=== PATIENT | female | born 1950 | race Caucasian/White ===

== ENCOUNTER → 2017-11-01 12:01 | Outpatient (CLI) | payer MEDICARE, BC, SELFPAY ==
--- NOTE | 2017-11-01 12:45 | BRBX_PTH ---
PATIENT: KARIN PRESTON LOC: [facility] U#:[id number] AGE/SX: 74/F ROOM: RE11/01/[address]: Dr. Fred Erickson MD : 1950 BED: DIS: SPEC #: [id number] RECD: 11/01/17 13:51 STATUS: BILLY ROSSY #: [id number] SAHRA: 11/01/17 12:[address]: Fred Erickson DEPT: SURGICAL PATHOLOGY RECD BY: Carmelo White ENTERED: 11/01/17 13:51 SP TYPE: BREAST BX OT DR: Kae Dunlap PA-C Tissues: Right breast, NOS Procedures: Surgery Specimen Level IV HEADER OPERATION: Right stereotactic breast biopsy PRE-OP DIAGNOSIS: Right breast microcalcifications anterior depth TISSUE SUBMITTED: Right breast core tissue ISCHEMIC TIME: 1 minute FIXATION TIME: 7.5 hours MICROSCOPIC DIAGNOSIS Right breast, microcalcifications anterior depth, stereotactic core biopsy: Fragments of fatty benign breast tissue with focal fat necrosis, chronic inflammation and dystrophic calcifications. Negative for atypia or malignancy. LISANDRA:krzysztof 11/02/17 MICROSCOPIC DESCRIPTION Slides are reviewed. GROSS DESCRIPTION Received is one container labeled with the patient's name and not further designated. The specimen consists of multiple elongated fragments of de la cruz-yellow fibroadipose tissue that in aggregate measure 7.5 x 3 x 0.3 cm. The entire specimen is submitted in three cassettes. / LISANDRA:krzysztof 11/01/17 TC:5 CPT: 56340
--- NOTE | 2017-11-01 13:03 | PCM.OPRPT ---
Problem List (1) Microcalcification of right breast on mammogram Status: Acute Report of Operation Date of Procedure: 11/01/17 Pre-Operative Diagnosis: R92.0 mammographic microcalcifications right breast Post-Operative Diagnosis: Same Surgery/Procedure Performed:: 40445 right stereotactic breast biopsy Type of Anesthesia:: Local Description of Procedure: Patient was brought into the mammographic unit. Placed in the supine position on the fissure table. The right breast was brought down through the opening. A cc view was obtained. Microcalcifications were identified. ?15? views were obtained. I prepped the breast with Betadine. I injected 1% lidocaine plain. A skin christi was made. The needle was placed in the prefire position. 2 more stereo views were obtained showing the microcalcifications to be adequately targeted. I fired the needle and took 360? circumferential biopsies. I x-rayed my specimen. Microcalcifications were identified. I backed the needle off [address] Placed a small Gelfoam titanium clip into the biopsy cavity. I removed the needle and x-rayed my breast. The clip was in the biopsy cavity. Patient was taken out sterile dressings were applied standard mammogram was obtained and she tolerated the procedure well. - Admit VTE Documentation VTE Present on Admission: No VTE Mechan Device Prophylaxis: None VTE Pharm Prophylaxis ordered?: No Reason prophylaxis not ordered:: Treatment Not Indicated
--- NOTE | 2017-11-01 13:07 | OP.PCM_ITS ---
Problem List (1) Microcalcification of right breast on mammogram Status: Acute Report of Operation Date of Procedure: 11/01/17 Pre-Operative Diagnosis: R92.0 mammographic microcalcifications right breast Post-Operative Diagnosis: Same Surgery/Procedure Performed:: 38947 right stereotactic breast biopsy Type of Anesthesia:: Local Description of Procedure: Patient was brought into the mammographic unit. Placed in the supine position on the fissure table. The right breast was brought down through the opening. A cc view was obtained. Microcalcifications were identified. ?15? views were obtained. I prepped the breast with Betadine. I injected 1% lidocaine plain. A skin christi was made. The needle was placed in the prefire position. 2 more stereo views were obtained showing the microcalcifications to be adequately targeted. I fired the needle and took 360? circumferential biopsies. I x- rayed my specimen. Microcalcifications were identified. I backed the needle off 7 mm. Placed a small Gelfoam titanium clip into the biopsy cavity. I removed the needle and x-rayed my breast. The clip was in the biopsy cavity. Patient was taken out sterile dressings were applied standard mammogram was obtained and she tolerated the procedure well. - Admit VTE Documentation VTE Present on Admission: No VTE Mechan Device Prophylaxis: None VTE Pharm Prophylaxis ordered?: No Reason prophylaxis not ordered:: Treatment Not Indicated
== END ==
PROVIDERS: Family Provider Family Medicine; PCP Family Medicine; Visit Provider Surgery
DX: N64.1 Fat necrosis of breast (principal); R92.0 Mammographic microcalcification found on diagnostic imaging of breast; E78.5 Hyperlipidemia, unspecified; E03.9 Hypothyroidism, unspecified; I10 Essential (primary) hypertension; E11.9 Type 2 diabetes mellitus without complications; Z79.84 Long term (current) use of oral hypoglycemic drugs; Z79.899 Other long term (current) drug therapy; Z87.891 Personal history of nicotine dependence
CPT/HCPCS: 19081; 88305; J7050; A4648

== ENCOUNTER 2018-06-13 07:20 | Day surgery (SDC) | payer MEDICARE, BC, SELFPAY ==
[2018-06-13 07:42] VITALS: BP 122/81; PULSE 79; RESP 16; TEMP 37; O2SAT 98; BMI 38.9
[2018-06-13 07:50] LABS: Bedside Glucose 127 mg/dL (70-110)
[2018-06-13 08:50] VITALS: BP 102/52; BP 122/81; PULSE 79; RESP 16; TEMP 36.4; O2SAT 97
--- NOTE | 2018-06-13 08:50 | OP.ENDO_ITS ---
Patient Name: Socorro Dixon Procedure Date: 06/13/2018 8:27 AM Date of : 1950 Age: 67 Procedure: Colonoscopy Indications: Screening in patient at increased risk: Colorectal cancer in brother 60 or older Providers: Fred Erickson MD Medicines: See the Anesthesia note for documentation of the administered medications Patient Profile: Last Colonoscopy: 5 years ago. Complications: No immediate complications. Procedure: Pre-Anesthesia Assessment: - Prior to the procedure, a History and Physical was performed, and patient medications and allergies were reviewed. The patient's tolerance of previous anesthesia was also reviewed. The risks and benefits of the procedure and the sedation options and risks were discussed with the patient. All questions were answered, and informed consent was obtained. Prior Anticoagulants: The patient has taken no previous anticoagulant or antiplatelet agents. ASA Grade Assessment: III - A patient with severe systemic disease. After reviewing the risks and benefits, the patient was deemed in satisfactory condition to undergo the procedure. After I obtained informed consent, the scope was passed under direct vision. Throughout the procedure, the patient's blood pressure, pulse, and oxygen saturations were monitored continuously. The adult colonoscope was introduced through the anus and advanced to the cecum, identified by appendiceal orifice and ileocecal valve. The colonoscopy was performed without difficulty. The patient tolerated the procedure well. The quality of the bowel preparation was good. Scope In: 8:33:42 AM Scope Withdrawal Time 0 hours 6 minutes 43 seconds Scope Out: 8:45:17 AM Total Procedure Duration Time 0 hours 11 minutes 35 seconds Findings: The perianal and digital rectal examinations were normal. A 3 mm polyp was found in the rectum. The polyp was sessile. The polyp was removed with a jumbo cold forceps. Resection and retrieval were complete. A few small-mouthed diverticula were found in the sigmoid colon. No biopsies or other specimens were collected for this exam. The exam was otherwise without abnormality. Impression: - One 3 mm polyp in the rectum, removed with a jumbo cold forceps. Resected and retrieved. - Diverticulosis in the sigmoid colon. No specimens collected. - The examination was otherwise normal. Recommendation: - Discharge patient to home. - Resume previous diet. - Continue present medications. - Await pathology results. - Repeat colonoscopy in 3 years for surveillance. - Return to my office in 1 week. Procedure Code(s): --- Professional --- 03001, Colonoscopy, flexible; with biopsy, single or multiple Diagnosis Code(s): --- Professional --- Z80.0, Family history of malignant neoplasm of digestive organs K62.1, Rectal polyp K57.30, Diverticulosis of large intestine without perforation or abscess without bleeding CPT copyright 2017 [employer]. All rights reserved. The codes documented in this report are preliminary and upon supervisor mainspring fabrication review may be revised to meet current compliance requirements. MD Fred Stern MD 06/13/2018 8:49:59 AM This report has been signed electronically. Number of Addenda: 0 Note Initiated On: 06/13/2018 8:27 AM
[2018-06-13 08:55] VITALS: BP 122/81; BP 90/39; PULSE 64; RESP 16; O2SAT 98
[2018-06-13 09:00] VITALS: BP 122/81; BP 95/38; PULSE 66; RESP 16; O2SAT 97
[2018-06-13 09:05] VITALS: BP 102/50; BP 122/81; PULSE 59; RESP 16; TEMP 36.3; O2SAT 100
[2018-06-13 09:55] VITALS: BP 122/81
--- NOTE | 2018-06-14 | COLBX_PTH ---
PATIENT: KARIN PRESTON LOC: [facility] U#:[id number] AGE/SX: 67/F ROOM: RE06/13/[address]: Dr. Fred Erickson MD : 1950 BED: DIS: 06/13/2018 SPEC #: [id number] RECD: 06/14/18 13:28 STATUS: BILLY REFrida #: [id number] SAHRA: 06/14/18 00:[address]: Fred Erickson DEPT: SURGICAL PATHOLOGY RECD BY: Carmelo White ENTERED: 06/14/18 13:28 SP TYPE: COLON BX OTHR DR: Kae Dunlap PA-C Tissues: Rectum, NOS Procedures: Surgery Specimen Level IV HEADER OPERATION: Colonoscopy (MAC) PRE-OP DIAGNOSIS: Family history of colon cancer TISSUE SUBMITTED: Rectal polyp biopsy MICROSCOPIC DIAGNOSIS Rectal polyp, biopsy: A fragment of colonic mucosa with focal hyperplastic changes. SJ:krzysztof 06/15/18 MICROSCOPIC DESCRIPTION Slides are reviewed. GROSS DESCRIPTION Received in fixative is one container labeled with the patient's name and designated rectal polyp biopsy. The specimen consists of one irregular fragment of light de la cruz soft tissue that measures 0.3 x 0.3 x 0.1 cm. The specimen is totally submitted in one cassette. / SJ:krzysztof 06/14/18 TC:5 CPT: 24332
== END 2018-06-13 09:57 | disposition home or self-care (01) ==
LOC: EN 07:20 → AC 07:21
PROVIDERS: Family Provider Family Medicine; PCP Family Medicine; Referring Provider Surgery; Visit Provider Surgery
PROC: 0DJD8ZZ Inspection of Lower Intestinal Tract, Via Natural or Artificial Opening Endoscopic (ICD-10-PCS; CPT 45378; principal; 2018-06-13 08:25)
DX: Z12.11 Encounter for screening for malignant neoplasm of colon (principal); K57.30 Diverticulosis of large intestine without perforation or abscess without bleeding; K62.1 Rectal polyp; Z87.19 Personal history of other diseases of the digestive system; Z80.0 Family history of malignant neoplasm of digestive organs; I10 Essential (primary) hypertension; E11.9 Type 2 diabetes mellitus without complications; E03.9 Hypothyroidism, unspecified; E78.5 Hyperlipidemia, unspecified; Z79.84 Long term (current) use of oral hypoglycemic drugs; Z79.899 Other long term (current) drug therapy; Z87.891 Personal history of nicotine dependence
CPT/HCPCS: 45380; 82962; 88305; J7120

== ENCOUNTER 2024-02-11 10:24 | Emergency (ER) | payer MEDICARE, BC, SELFPAY ==
[2024-02-11 10:25] VITALS: BP 209/87; BP 210/79; PULSE 81; PULSE 85; RESP 14; RESP 16; TEMP 36.6; O2SAT 100; O2SAT 98; BMI 39.6
--- NOTE | 2024-02-11 11:07 | CT_ITS ---
STUDY: CT ABDOMEN AND PELVIS WITHOUT CONTRAST REASON FOR EXAM: Female, 73 years old. Right flank and abdominal pain RADIATION DOSAGE (If Supplied By Facility): CTDIvol = ( 21.94 ) mGy, DLP = ( 1195.06 ) mGycm TECHNIQUE: Transaxial images were obtained from the dome of the diaphragm to the symphysis pubis without oral contrast, and without intravenous contrast. Sagittal and coronal images were reconstructed. Individualized dose optimization techniques were used for this CT. COMPARISON: None. FINDINGS: Mild degree of increased linear markings at the lung bases suggestive of atelectasis. Coronary artery calcification. Normal liver. Normal gallbladder and extrahepatic biliary system. Normal spleen. Normal pancreas. Normal bilateral adrenal glands. There is a 5 mm calculus in the proximal portion of the right ureter causing mild degree right hydronephrosis. 2 mm nonobstructive calculus in the lower pole of the right kidney. Normal left kidney. Normal visualized stomach. Normal small intestine. Normal colon. The appendix is visualized and appears normal. There is scattered atherosclerotic calcification of the abdominal aorta, without a demonstrated aneurysm. Normal inferior vena cava. Normal retroperitoneum. Normal urinary bladder. There is absence of the uterus consistent with a prior hysterectomy. Small ventral hernia in the lower anterior abdomen containing fat. There are degenerative changes of the visualized lumbar spine. Grade 1 anterolisthesis of L4 on L5. Findings suggestive of hemangioma of the L4 body. CT/Abdomen/Pelvis without Cont IMPRESSION: 5 mm calculus in the proximal portion of the right ureter causing mild degree of right hydronephrosis. Nonobstructive 2 mm cavernous in the lower pole calyx of the right kidney. Electronically Signed: Baltazar Braswell MD at 12:32 EDT ,
--- NOTE | 2024-02-11 11:09 | EX.ED.DYSGE1 ---
HPI <JOHN Stevens - Last Filed: 02/11/24 13:16> History of Present Illness Chief Complaint: Abd Pain Narrative Narrative: 73-year-old female with past medical history of hypertension, diabetes states at 6 AM she was awoken with right sided abdominal pain. it feels like sharp colicky pain in the mid to right lower quadrant and occasionally radiates to the right low back. Pain comes in waves and caused nausea and vomiting. It has subsided to 2 out of 10. She noted twinges of right-sided abdominal pain earlier this week but did not think much of it. She has no bladder or bowel changes. She has a history of x 1 and hysterectomy. She states on a prior CT scan she was told she had a nonobstructive kidney stone. [facility] <JOHN Stevens - Last Filed: 02/11/24 13:16> [facility] Medical History (Updated 02/11/24 @ 12:36 by JOHN Stevens) Hyperlipidemia Hypothyroid Diabetes HTN (hypertension) Home Medications ?Medication ?Instructions ?Recorded ?Last Taken ?Type levothyroxine 50 mcg tablet 50 mcg PO DAILY 02/07/14 06/13/18 06:00 History lisinopril 5 mg tablet 10 mg PO DAILY 10/11/17 06/13/18 06:00 History metformin 500 mg tablet 1,000 mg PO BIDCM 10/11/17 Unknown History metoprolol tartrate 25 mg tablet 25 mg PO QDAY 10/11/17 06/13/18 06:00 History dulaglutide 0.75 mg/0.5 mL 0.75 mg SQ TU 06/10/18 Unknown History subcutaneous pen injector (Trulicity) rosuvastatin 10 mg tablet 10 mg PO DAILY 06/10/18 Unknown History hydrocodone-acetaminophen 5-325mg 1 tab PO Q6H PRN PRN Pain 3 days 02/11/24 Unknown Rx 5mg-325mg #12 TABLETS ondansetron 4 mg disintegrating 4 mg PO Q6H PRN nausea and 02/11/24 Unknown Rx tablet vomiting #12 tabs tamsulosin 0.4 mg capsule (Flomax) 0.4 mg PO DAILY #14 caps 02/11/24 Unknown Rx Allergy/AdvReac Type Severity Reaction Status Date / Time No Known Allergies Allergy Verified 02/11/24 10:25 Family History Sister Breast cancer Diabetes Thyroid disorder Brother Colon cancer Heart disease Thyroid disorder Mother Diabetes Hypertension Surgical History H/O breast biopsy Hx of colonoscopy History of cataract extraction History of right wrist replacement History of tubal ligation History of hysterectomy H/O: Social History (Updated 05/24/18 @ 09:[address] Fred Erickson MD) Smoking Status: Former smoker alcohol intake: never ROS <JOHN Stevens - Last Filed: 02/11/24 13:16> ROS ED ROS Narrative Constitutional: Negative for fever, chills, malaise. CVS: Negative for chest pain, syncope. Respiratory: Negative for shortness of breath, cough. GI: Positive for abdominal pain, nausea, vomiting. Negative for diarrhea, constipation, melena, hematochezia. : Negative for dysuria, hematuria or frequency. EXAM <JOHN Stevens - Last Filed: 02/11/24 13:16> Physical Exam Narrative Exam Narrative: CONST: Patient sitting in no acute distress. EYES: Normal inspection. NECK: Normal inspection. RESP: No respiratory distress, CTAB. CVS: Regular rate and rhythm, no murmur, no gallop. ABD: Soft and nontender, no guarding or rebound, nondistended, no hepatosplenomegaly. Back: Normal inspection, no CVA tenderness. SKIN: Color normal, no rash, warm, dry, intact. EXTREMITIES: Normal appearance, no pedal edema. NEURO: Alert and answering questions appropriately. PSYCH: Normal affect. Const Vital Signs: 02/11/24 10:25 02/11/24 10:25 02/11/24 12:22 Temperature 98 F Temperature Source Temporal Pulse Rate 81 85 69 Respiratory Rate 16 14 16 Blood Pressure 210/79 H 209/87 H 200/86 H Blood Pressure Mean 122 127 124 Pulse Ox 98 100 98 Oxygen Delivery Method Room Air Nasal Cannula 02/11/24 12:42 Temperature Temperature Source Pulse Rate Respiratory Rate Blood Pressure 175/90 H Blood Pressure Mean 118 Pulse Ox Oxygen Delivery Method <Dr. Fred Harrell DO - Last Filed: 02/11/24 13:22> Physical Exam Const Vital Signs: 02/11/24 10:25 02/11/24 10:25 02/11/24 12:22 Temperature 98 F Temperature Source Temporal Pulse Rate 81 85 69 Respiratory Rate 16 14 16 Blood Pressure 210/79 H 209/87 H 200/86 H Blood Pressure Mean 122 127 124 Pulse Ox 98 100 98 Oxygen Delivery Method Room Air Nasal Cannula 02/11/24 12:42 Temperature Temperature Source Pulse Rate Respiratory Rate Blood Pressure 175/90 H Blood Pressure Mean 118 Pulse Ox Oxygen Delivery Method [facility] <JOHN Stevens - Last Filed: 02/11/24 13:16> [facility] Narrative Medical decision making narrative: History gathered from: Patient, family member Differential: Kidney stone, pyelonephritis, UTI, diverticulitis or other intra-abdominal process Patient has acute right-sided abdominal pain with nausea and vomiting. She appears well and nontoxic. She is hypertensive at 200/86 with otherwise normal vital signs. She has a soft, nonsurgical abdomen. Labs show normal white count of 5.8, normal electrolytes and renal function, glucose of 212 consistent with her history of diabetes with no DKA. CT shows 5 mm right proximal ureteral obstructive stone causing mild hydronephrosis. UA has RBCs but no infection. Patient declined morphine and feels better after Toradol. I discussed the case with Dr. Altman who states patient can follow-up in the office next week. She is comfortable going home. I prescribed [place], Zofran, Flomax and a urine strainer with return precautions. She was discharged in stable condition. Lab Data Attestation: I reviewed the patient's lab results. Labs: Laboratory Results - last 24 hr 02/11/24 02/11/24 11:15 12:15 WBC 5.8 RBC 4.42 Hgb 12.3 Hct 38.7 MCV 87.6 MCH 27.8 MCHC 31.8 L RDW Std Deviation 44.2 H RDW Coeff of Davey 13.9 Plt Count 312 MPV 9.4 Immature Gran % (Auto) 1.000 H Neut % (Auto) 68.8 Lymph % (Auto) 20.8 [place] % (Auto) 6.2 Eos % (Auto) 1.7 Baso % (Auto) 1.5 H Absolute Neuts (auto) 4.0 Absolute Lymphs (auto) 1.21 Nucleated RBC % 0 Sodium 140 Potassium 4.2 Chloride 106 Carbon Dioxide 23.0 Anion Gap 11 BUN 17 Creatinine 0.88 Estim Creat Clear Calc 65.72 Est GFR (MDRD) Af Amer 81 Est GFR (MDRD) Non-Af 67 BUN/Creatinine Ratio 19.3 Glucose 212 H Calcium 9.3 Total Bilirubin 0.40 AST 20 ALT 31 Alkaline Phosphatase 118 H Total Protein 6.9 Albumin 3.4 Globulin 3.5 Albumin/Globulin Ratio 1.0 Urine Color Yellow Urine Clarity Sl. Cloudy Urine pH 6.0 Ur Specific [place] 1.015 Urine Protein 30 H Urine Glucose (UA) Normal Urine Ketones Negative Urine Occult Blood 250 H Urine Nitrite Negative Urine Bilirubin Negative Urine Urobilinogen Normal Ur Leukocyte Esterase 25 H Urine RBC 25-50 SEEN Urine WBC 0-5 SEEN Ur Squamous Epith Cells 0-5 SEEN Urine Bacteria 0 SEEN Urine Mucus 0 SEEN Radiography Diagnostic Testing: Clinical Impression(s) from Imaging Studies Abdomen/Pelvis CT 02/11/24 11:07 IMPRESSION: 5 mm calculus in the proximal portion of the right ureter causing mild degree of right hydronephrosis. Nonobstructive 2 mm cavernous in the lower pole calyx of the right kidney. Electronically Signed: Baltazar Braswell MD at 12:32 EDT , <Dr. Fred Harrell, DO - Last Filed: 02/11/24 13:22> [facility] Narrative Medical decision making narrative: History gathered from: Patient, family member Differential: Kidney stone, pyelonephritis, UTI, diverticulitis or other intra-abdominal process Patient has acute right-sided abdominal pain with nausea and vomiting. She appears well and nontoxic. She is hypertensive at 200/86 with otherwise normal vital signs. She has a soft, nonsurgical abdomen. Labs show normal white count of 5.8, normal electrolytes and renal function, glucose of 212 consistent with her history of diabetes with no DKA. CT shows 5 mm right proximal ureteral obstructive stone causing mild hydronephrosis. UA has RBCs but no infection. Patient declined morphine and feels better after Toradol. I discussed the case with Dr. Altman who states patient can follow-up in the office next week. She is comfortable going home. I prescribed [place], Zofran, Flomax and a urine strainer with return precautions. She was discharged in stable condition. I have personally performed a face to face assessment of the patient and have reviewed the GILMA Note. I performed a substantive portion of the visit including all aspects of the following. My cruz findings include: History is 73-year-old female with some intermittent right flank and nausea yesterday. It worsened today and is noted to be more in the mid abdomen in the flank. Familial history of kidney stones but no personal history of kidney stones. She notes her urine is darker than normal. Exam is patient resting comfortably in the bed. Nonsurgical abdomen. Medical Decison Making CT demonstrates a proximal ureteral stone of about 5 to 6 mm. Urinalysis demonstrates microscopic hematuria but no obvious infection. Creatinine is normal. White count is normal. Will discuss with urology. Patient will be discharged home with pain medication and nausea medication. To follow-up in the office or return if worsening or uncontrolled pain. Patient and her son noted understanding of the plan History & Record Review Discussion w/independent historian: Patient Lab Data Attestation: I reviewed the patient's lab results. Labs: Laboratory Results - last 24 hr 02/11/24 02/11/24 11:15 12:15 WBC 5.8 RBC 4.42 Hgb 12.3 Hct 38.7 MCV 87.6 MCH 27.8 MCHC 31.8 L RDW Std Deviation 44.2 H RDW Coeff of Davey 13.9 Plt Count 312 MPV 9.4 Immature Gran % (Auto) 1.000 H Neut % (Auto) 68.8 Lymph % (Auto) 20.8 [place] % (Auto) 6.2 Eos % (Auto) 1.7 Baso % (Auto) 1.5 H Absolute Neuts (auto) 4.0 Absolute Lymphs (auto) 1.21 Nucleated RBC % 0 Sodium 140 Potassium 4.2 Chloride 106 Carbon Dioxide 23.0 Anion Gap 11 BUN 17 Creatinine 0.88 Estim Creat Clear Calc 65.72 Est GFR (MDRD) Af Amer 81 Est GFR (MDRD) Non-Af 67 BUN/Creatinine Ratio 19.3 Glucose 212 H Calcium 9.3 Total Bilirubin 0.40 AST 20 ALT 31 Alkaline Phosphatase 118 H Total Protein 6.9 Albumin 3.4 Globulin 3.5 Albumin/Globulin Ratio 1.0 Urine Color Yellow Urine Clarity Sl. Cloudy Urine pH 6.0 Ur Specific [place] 1.015 Urine Protein 30 H Urine Glucose (UA) Normal Urine Ketones Negative Urine Occult Blood 250 H Urine Nitrite Negative Urine Bilirubin Negative Urine Urobilinogen Normal Ur Leukocyte Esterase 25 H Urine RBC 25-50 SEEN Urine WBC 0-5 SEEN Ur Squamous Epith Cells 0-5 SEEN Urine Bacteria 0 SEEN Urine Mucus 0 SEEN Radiography Diagnostic Testing: Clinical Impression(s) from Imaging Studies Abdomen/Pelvis CT 02/11/24 11:07 IMPRESSION: 5 mm calculus in the proximal portion of the right ureter causing mild degree of right hydronephrosis. Nonobstructive 2 mm cavernous in the lower pole calyx of the right kidney. Electronically Signed: Baltazar Braswell MD at 12:32 EDT , Management Discussion w/another healthcare provider: Cook Pressure (Dr. Bonilla (Urology)) Discharge Plan Triage Chief Complaint: Abd Pain ED Midlevel Provider: Denise Jasso ED Provider: Fred Harrell Dx/Rx/DC Orders Clinical Impression: Kidney stone on right side Instructions: ED Kidney Stone with Pain Prescriptions: New hydrocodone-acetaminophen 5-325 mg tablet 1 tab PO Q6H PRN PRN (Reason: Pain) 3 Days Qty: 12 0RF ondansetron 4 mg tablet,disintegrating 4 mg PO Q6H PRN (Reason: nausea and vomiting) Qty: 12 0RF tamsulosin [Flomax] 0.4 mg capsule 0.4 mg PO DAILY Qty: 14 0RF No Action metoprolol tartrate 25 mg tablet 25 mg PO QDAY levothyroxine 50 MCG tablet 50 mcg PO DAILY lisinopril 5 MG tablet 10 mg PO DAILY metformin 500 MG tablet 1,000 mg PO BIDCM rosuvastatin 10 MG tablet 10 mg PO DAILY dulaglutide [Trulicity] 0.75 MG/0.5 ML pen injector 0.75 mg SQ TU Primary Care Provider: Nallely Robb Referrals: Jeremy Bonilla MD [Med Staff - Active Staff] - Kae Dunlap PA-C [Non-Staff] - Activity Restrictions/Additional Instructions: There is a 5 mm right-sided kidney stone. Please follow-up with urology. If symptoms worsen such as severe pain, vomiting and you cannot keep down your medications, fever, or inability to urinate please return to the emergency room. Print Language: Telugu Disposition Disposition: Home, Self Care
[2024-02-11] MEDS: 0.9% Normal Saline (1000mL) 1,000 ML 999 ML IV (11:22)
[2024-02-11] MEDS: Ondansetron 4 MG/2 ML Vial IV (11:22)
[2024-02-11 11:23] LABS: Absolute Lymphocyte Count 1.21 X10^3/uL (0.83-4.51); Basophil# 0.09 X10^3/uL; Basophil% 1.5 % (0-1); Eosinophils% 1.7 % (0-5); Hematocrit 38.7 % (37-47); Hemoglobin 12.3 g/dL (12.0-15.0); Lymphocyte # 1.21 X10^3/ul (0.83-4.51); Lymphocyte % 20.8 % (19-41); Mean Corp Hgb Conc 31.8 g/dL (32-36); Mean Corpuscular Hgb 27.8 pg (27.0-32.0); Mean Corpuscular Volume 87.6 fL (81-99); Mean Platelet Vol. 9.4 fl (6.2-12.0); Monocyte# 0.36 X10^3/uL; Monocyte% 6.2 % (0-10); NRBC Flagged by Analyzer 0 % (0-5); Neutrophil # 3.99 X10^3/uL (2.7-7.7); Neutrophil % 68.8 % (47-70); Platelet Count 312 K/mm3 (150-450); RBC Distribution Width CV 13.9 % (11.6-14.6); RBC Distribution Width SD 44.2 fl (35.1-43.9); Red Blood Count 4.42 M/mm3 (4.2-5.4); White Blood Count 5.8 K/mm3 (4.4-11.0)
[2024-02-11 11:38] LABS: AST(SGOT) 20 U/L (15-37); Alanine Aminotransfer ALT/SGPT 31 U/L (13-56); Albumin, Serum 3.4 g/dL (3.2-5.0); Alkaline Phosphatase 118 U/L (45-117); Anion Gap 11 (5-15); BUN 17 mg/dL (7-18); BUN/Creat Ratio 19.3 RATIO (10-20); Calcium,Total 9.3 mg/dL (8.5-10.1); Chloride 106 mmol/L (98-107); Creatinine, Serum 0.88 mg/dL (0.55-1.02); EST Glomerular Filtration Rate 67 mL/min (>60); Est Glom Filt Rate - Afr Amer 81 mL/min (>60); Estimated Creatinine Clearance 65.72 ml/min; Globulin 3.5 g/dL (2.2-4.2); Glucose 212 mg/dL (74-106); Potassium 4.2 mmol/L (3.5-5.1); Protein, Total 6.9 g/dL (6.4-8.2); Sodium Level 140 mmol/L (136-145)
[2024-02-11 12:22] VITALS: BP 200/86; PULSE 69; RESP 16; O2SAT 98
[2024-02-11] MEDS: Ketorolac 15 MG/ML Vial IV (12:23)
[2024-02-11 12:28] LABS: Bacteria 0 SEEN /hpf (None Seen); Mucous, Urine 0 SEEN /hpf (<or=2+)
[2024-02-11 12:38] LABS: Color, Urine Yellow (Yellow); Glucose, Dipstick Normal (Normal); Ketone-Dipstick Negative (Negative); Leukocyte Esterase-Dipstick 25 /ul (Negative); Nitrite-Dipstick Negative (Negative); Occult Blood-Urine 250 /ul (Negative); Protein-Dipstick 30 mg/dl (Negative); Specific Gravity, Urine 1.015 (1.002-1.030); Urine Bilirubin Dipstick Negative (Negative); Urine Clarity Sl. Cloudy (Clear); Urine Urobilinogen Normal (Normal)
[2024-02-11 12:42] VITALS: BP 175/90
[2024-02-11 13:00] LABS: Red Blood Cells-Urine 25-50 SEEN /hpf (0-5); Squamous Epithelial Cells - UA 0-5 SEEN /hpf (5-10); White Blood Cells 0-5 SEEN /hpf (0-5)
[2024-02-11 13:33] VITALS: BP 127/108; PULSE 70; RESP 16; TEMP 36.7; O2SAT 94
== END 2024-02-11 13:57 | disposition home or self-care (01) ==
PROVIDERS: Physician Assistant; Emergency Provider Emergency Medicine; Visit Provider Emergency Medicine
DX: N13.2 Hydronephrosis with renal and ureteral calculous obstruction (principal); E11.9 Type 2 diabetes mellitus without complications; I10 Essential (primary) hypertension; E78.5 Hyperlipidemia, unspecified; E03.9 Hypothyroidism, unspecified; Z79.84 Long term (current) use of oral hypoglycemic drugs; Z79.899 Other long term (current) drug therapy; Z87.891 Personal history of nicotine dependence
CPT/HCPCS: 74176; 80053; 81001; 85025; 96361; 96374; 96375; 99283; A4216; J2405

== ENCOUNTER 2024-02-11 23:05 | Observation (INO) | payer MEDICARE, BC, SELFPAY ==
[2024-02-11 23:06] VITALS: BP 204/109; PULSE 75; RESP 20; TEMP 36; O2SAT 97; BMI 39.8
[2024-02-11] MEDS: Ondansetron 4 MG/2 ML Vial IV (23:30)
[2024-02-11] MEDS: 0.9% Normal Saline (1000mL) 1,000 ML 999 ML IV (23:30)
[2024-02-11] MEDS: Morphine 4 MG/ML Syringe IV (23:30)
[2024-02-12] VITALS (17 sets, daily range): BP systolic 91–202; BP diastolic 62–90; PULSE 64–116; RESP 14–20; TEMP 36.1–37.1; O2SAT 91–98; BMI 39.6; BMI 39.7
[2024-02-12] MEDS: proCHLORPERazine 10 MG/2 ML Vial IV (00:08)
[2024-02-12] MEDS: DiphenhydrAMINE 50 MG/ML Syringe 25 MG IV (00:08)
[2024-02-12] MEDS: Ketorolac 15 MG/ML Vial IV (00:08)
--- NOTE | 2024-02-12 00:28 | EX.ED.DYSGE1 ---
HPI History of Present Illness Chief Complaint: Flank Pain Informant: patient and family Narrative Narrative: Patient is a 73-year-old female with past medical history of [id number] type 2 diabetes hypertension and hypothyroidism. She was seen this morning/early afternoon secondary to right-sided flank/back pain without trauma and found to have a 5 mm mid ureteral stone. There is no signs of UTI or acute kidney injury and her pain was improved with Toradol so she was discharged home on [place] and Flomax and told to take ibuprofen with this. Patient states she was feeling relatively well until roughly 7 PM when the pain returned and she took the medication as directed. Despite waiting multiple hours for the pain to improve with the prescribed medication there is no resolution and therefore she comes in for evaluation [facility] Medical History Hyperlipidemia Hypothyroid Diabetes HTN (hypertension) Home Medications ?Medication ?Instructions ?Recorded ?Last Taken ?Type metformin 500 mg tablet 1,000 mg PO BIDCM 10/11/17 02/10/24 History dulaglutide 0.75 mg/0.5 mL 0.75 mg SQ TU 06/10/18 02/10/24 History subcutaneous pen injector (Trulicity) rosuvastatin 10 mg tablet 10 mg PO DAILY 06/10/18 02/10/24 History glipizide 5 mg tablet 5 mg PO DAILY 02/11/24 02/10/24 History hydrocodone-acetaminophen 5-325mg 1 tab PO Q6H PRN PRN Pain 3 days 02/11/24 Unknown Rx 5mg-325mg #12 TABLETS levothyroxine 75 mcg tablet 75 mcg PO DAILY 02/11/24 02/10/24 History lisinopril 10 mg tablet 10 mg PO DAILY 02/11/24 02/10/24 History metoprolol tartrate 50 mg tablet 50 mg PO DAILY 02/11/24 02/10/24 History ondansetron 4 mg disintegrating 4 mg PO Q6H PRN nausea and 02/11/24 Unknown Rx tablet vomiting #12 tabs tamsulosin 0.4 mg capsule (Flomax) 0.4 mg PO DAILY #14 caps 02/11/24 Unknown Rx Allergy/AdvReac Type Severity Reaction Status Date / Time No Known Allergies Allergy Verified 02/11/24 23:08 Family History Sister Breast cancer Diabetes Thyroid disorder Brother Colon cancer Heart disease Thyroid disorder Mother Diabetes Hypertension Surgical History H/O breast biopsy Hx of colonoscopy History of cataract extraction History of right wrist replacement History of tubal ligation History of hysterectomy H/O: Social History Smoking Status: Former smoker alcohol intake: never ROS ROS ED Constitutional Constitutional ED: Denies chills or fever(s) ENT ENT ED: Denies sore throat Cardiovascular Cardiovascular: Denies chest pain Respiratory/Chest Respiratory/Chest: Denies cough or dyspnea Gastrointestinal Gastrointestinal: Reports abdominal pain; Denies diarrhea, nausea or vomiting Genitourinary Genitourinary ED: Reports hematuria; Denies dysuria or urinary frequency Musculoskeletal Musculoskeletal: Reports back pain; Denies myalgias Integumentary Denies rash Neurologic Neurologic: Denies headache(s) Hematologic/Lymphatic Hematologic/Lymphatic: Denies easy bleeding or easy bruising EXAM Physical Exam Const Vital Signs: 02/11/24 23:06 Temperature 96.8 F L Temperature Source Temporal Pulse Rate 75 Respiratory Rate 20 H Blood Pressure 204/109 H Blood Pressure Mean 140 Pulse Ox 97 Oxygen Delivery Method Room Air Positive well nourished, well developed and obese General Appearance ED: well developed; Negative for pallor Nutritional Appearance: obese HEENT HEENT Narrative: Normocephalic atraumatic Eyes PERRL and EOMs intact bilaterally General Eye ED: Negative for scleral icterus Neck supple Resp normal respiratory effort and clear to auscultation bilaterally Cardio regular rate and regular rhythm Rate: other Other Details: Heart is regular rate and rhythm Radial and carotid pulses are equal and symmetric GI non-distended and no masses GI Narrative: Abdomen is soft and nondistended with hypoactive bowel sounds. Patient has mild pain with palpation along the right mid lateral abdomen which correlates with the potential location of her ureteral stone. No voluntary guarding or rigidity or pulsatile mass Auscultation: hypoactive bowel sounds Palpation: soft Back/Spine Back/Spine Narrative: Positive right CVA pain noted Extremity normal to inspection Neuro oriented x3, CN's II-XII intact bilaterally and no sensory deficits noted Sensorium / Orientation: alert Motor Exam: strength 5/5 throughout Psych mental status grossly normal Skin no rashes or lesions noted General Skin Exam: Negative for jaundice or pallor MDM MDM MDM Narrative Medical decision making narrative: Patient presented to the ER hypertensive otherwise with stable vitals. She has a past medical history of this and is in pain so this is not unexpected. As the patient was just seen roughly 10 to 12 hours ago and had laboratory studies and CT scan and did not feel the need for repeat blood work or imaging. As most likely diagnosis is intractable pain secondary to her kidney stone an IV was established and she was treated with IV fluids Zofran and morphine. Despite this nausea persisted as well as the pain and therefore Toradol was added as well as Benadryl and Compazine. After receiving these medications she did report improvement of her pain and vitals stabilized as well. As she is a bounce back from earlier today the case was once again discussed with urology on-call Dr. Bonilla. He agrees that as the patient's had relatively fast return of pain that is not responding to her prescribed medications that she would benefit from admission to the hospital with stent placement in the morning. This plan of care was discussed with the patient she is agreeable to it and therefore be admitted for further care History & Record Review Discussion w/independent historian: Patient and Family Management Discussion w/another healthcare provider: Early Childhood Associate Discharge Plan Dx/Rx/DC Orders Clinical Impression: Kidney stone on right side, Intractable pain, Hypertension, Non-insulin dependent diabetes mellitus, Hypothyroidism Disposition Disposition: [facility]
[2024-02-12 00:38] LABS: Absolute Lymphocyte Count 2.41 X10^3/uL (0.83-4.51); Absolute Neutrophil Count 8.8 X10^3/uL (2.0-7.7); Basophil# 0.13 X10^3/uL; Eosinophil# 0.14 X10^3/uL; Eosinophils% 1.1 % (0-5); Hematocrit 40.1 % (37-47); Hemoglobin 12.7 g/dL (12.0-15.0); Lymphocyte # 2.41 X10^3/ul (0.83-4.51); Lymphocyte % 19.4 % (19-41); Mean Corp Hgb Conc 31.7 g/dL (32-36); Mean Corpuscular Hgb 28.1 pg (27.0-32.0); Mean Corpuscular Volume 88.7 fL (81-99); Mean Platelet Vol. 10.1 fl (6.2-12.0); Monocyte% 6.4 % (0-10); NRBC Flagged by Analyzer 0 % (0-5); Neutrophil # 8.82 X10^3/uL (2.7-7.7); Neutrophil % 71.1 % (47-70); Platelet Count 405 K/mm3 (150-450); RBC Distribution Width CV 13.7 % (11.6-14.6); RBC Distribution Width SD 44.8 fl (35.1-43.9); Red Blood Count 4.52 M/mm3 (4.2-5.4); White Blood Count 12.4 K/mm3 (4.4-11.0)
[2024-02-12 01:06] LABS: Anion Gap 11 (5-15); BUN 17 mg/dL (7-18); Calcium,Total 9.2 mg/dL (8.5-10.1); Chloride 107 mmol/L (98-107); Creatinine, Serum 0.94 mg/dL (0.55-1.02); EST Glomerular Filtration Rate 62 mL/min (>60); Est Glom Filt Rate - Afr Amer 75 mL/min (>60); Estimated Creatinine Clearance 61.69 ml/min; Glucose 262 mg/dL (74-106); Potassium 3.8 mmol/L (3.5-5.1); Sodium Level 141 mmol/L (136-145)
[2024-02-12] MEDS: 0.9% Normal Saline (1000mL) 1,000 ML 50 ML IV (01:15)
[2024-02-12] MEDS: Morphine 2 MG/ML Syringe IV (01:58)
--- NOTE | 2024-02-12 05:00 | EKG12_ITS ---
Test Reason : AM EKG Blood Pressure : / mmHG Vent. Rate : 091 BPM Atrial Rate : 091 BPM P-R Int : 170 ms QRS Dur : 090 ms QT Int : 396 ms P-R-T Axes : 047 001 026 degrees QTc Int : 487 ms Normal sinus rhythm Nonspecific ST abnormality Abnormal ECG When compared with ECG of 14-AUG-2002 16:08, No significant change was found Confirmed by JACQUELINE RODRIGUEZ, SAI ([id number]), proposal editor RENA CORDOVA ([id number]) on 02/15/2024 9:29:22 AM Referred By: Jeremy Bonilla Confirmed By:SAI PHILLIPS MD
[2024-02-12 06:02] LABS: Bacteria 0 SEEN /hpf (None Seen); Mucous, Urine 0 SEEN /hpf (<or=2+); White Blood Cells 0 SEEN /hpf (0-5)
[2024-02-12 06:04] LABS: Color, Urine Yellow (Yellow); Glucose, Dipstick 250 mg/dl (Normal); Ketone-Dipstick 15 mg/dl (Negative); Leukocyte Esterase-Dipstick Negative /ul (Negative); Nitrite-Dipstick Negative (Negative); Occult Blood-Urine 150 /ul (Negative); Protein-Dipstick 15 mg/dl (Negative); Urine Bilirubin Dipstick Negative (Negative); Urine Clarity Clear (Clear); Urine Urobilinogen Normal (Normal)
[2024-02-12 06:31] LABS: Red Blood Cells-Urine 5-10 SEEN /hpf (0-5); Squamous Epithelial Cells - UA 0-5 SEEN /hpf (5-10)
[2024-02-12 07:40] LABS: Anion Gap 8 (5-15); BUN 17 mg/dL (7-18); BUN/Creat Ratio 14.9 RATIO (10-20); Calcium,Total 8.8 mg/dL (8.5-10.1); Chloride 112 mmol/L (98-107); Creatinine, Serum 1.14 mg/dL (0.55-1.02); EST Glomerular Filtration Rate 50 mL/min (>60); Est Glom Filt Rate - Afr Amer 60 mL/min (>60); Estimated Creatinine Clearance 50.79 ml/min; Glucose 177 mg/dL (74-106); Potassium 3.9 mmol/L (3.5-5.1); Sodium Level 143 mmol/L (136-145); Thyroid Stim Hormone (TSH) 2.02 uIU/mL (0.358-3.74)
[2024-02-12 08:20] LABS: Hemoglobin A1c 6.6 % (3.8-5.6)
--- NOTE | 2024-02-12 10:57 | PRE.ANES_ITS ---
ASA Classification* ASA Classification ASA Classification: 2 and E Assessment & Plan Anesthesia* Anesthesia Assessment Anesthesia Assessment: Discussed sedation and/or anesthesia options, risks, benefits, and alternatives with patient/parents/legal guardian/POA. Questions invited. The patient/parents/legal guardian/POA seems to understand and agrees to proceed with anesthesia plan. Reviewed the physical assessment, medical history, allergy history and patient home medications list prior to surgery/procedure/anesthetic and documented any changes. Performed airway and anesthesia risk assessments. Anesthesia Type Anesthesia Type: MAC Pre-Assessment Diagnosis/Proposed Procedure Planned Operative Procedure(s): cystoscopy, right urteral stent Anesthesia History Anesthesia History - life sciences director: Anesthesia History - life sciences director Hx Hospitalization No 06/10/18 13:49 Any Problems With Anesthesia No 02/12/24 01:42 Cholinesterase deficiency No 02/12/24 01:42 You/Your Family Experience No 02/12/24 01:42 fever (hyperthermia) with Relationship Recent Exposure to Contagious No 02/12/24 01:42 Disease Does patient have nerve No 02/12/24 01:42 stimulator Patient instructed to have device shut off --Does patient have Pacemaker or ICD? When Was Last Pacemaker Check QUESTION #4 FULL TEXT: You/Your Family Experience fever (hyperthermia) with Anesthesia Last Oral Intake Last Oral intake: Last Oral Intake NPO since Meds taken in AM with sips of water? Meds patient instructed to take am of surgery PONV PONV - life sciences director: PONV - life sciences director Female HX of Motion Sickness HX of N/V After Surgery Non-Smoker Duration of Surgery greater than 60 minutes Number of Risk Factors PONV Score Height & Weight Height & Weight: Anesthesia: Height & Weight Height 5 ft 3 in 02/12/24 01:05 Weight: 101.7 kg 02/12/24 01:05 Body Mass Index (BMI) 39.6 02/12/24 01:05 Respiratory Assessment Respiratory Assessment - life sciences director: Respiratory Tract Infection Hx - life sciences director Hx Respiratory Tract Infection No 02/12/24 01:42 STOP Sleep Apnea STOP Sleep Apnea - life sciences director: STOP Sleep Apnea - life sciences director Hx Hypertension Yes 02/12/24 01:05 Hx Sleep Apnea No 02/12/24 01:05 CPAP BIPAP Do you snore loudly (louder No 02/12/24 01:05 than talking or can be heard Do you often feel tired/ Yes 02/12/24 01:05 fatigued/ sleepy during daytime? Has anyone observed you stop No 02/12/24 01:05 breathing during sleep? STOP Results Positive 02/12/24 01:05 QUESTION #5 FULL TEXT : Do you snore loudly (louder than talking or can be heard through closed doors)? Tobacco Use History Tobacco Use History - life sciences director: Tobacco Use History - life sciences director Tobacco Use Smoking Status Former smoker 02/12/24 01:05 Hx Tobacco Use No 02/12/24 01:05 Years Smoking Packs Smoked per Day Smoking Cessation Date was No - quit smoking greater 02/12/24 01:05 within the last 15 years than 15 years ago Hx Smoking Cessation Date 08/30/07 02/12/24 01:05 Hx Smoking Cessation Counseling Hematologic Medial History Hematologic Hx - life sciences director: Hematologic Medical Hx - documentation designer Hx of Blood Transfusion No 02/12/24 01:05 Hx of Transfusion in last 3 No 02/12/24 01:05 Months Date of Last Transfusion (if within last 3 months) Ever experience any problems No 02/12/24 01:05 with transfusion(s)? Specify any problems Hx of Preganancy in last 3 No 02/12/24 01:05 Months Nurse Filling Out Transfusion EVIZZO 02/12/24 01:05 & Questions: Date: 02/12/24 02/12/24 01:05 Time: 01:19 02/12/24 01:05 Patient unable to answer at this time (ie. confused, unrespo /Reproduction History /Reproductive History - life sciences director: /Reproductive Hx- life sciences director Hx Now No 02/12/24 01:42 Gestational Age (in weeks): EDC: Hx Hx Para Hx Section SAB No 02/12/24 01:42 Active Medications Active Medications: Current Medications Generic Name Dose Route Start Last Admin Trade Name Freq PRN Reason Stop Dose Admin Sodium Chloride 1,000 mls @ 50 mls/hr 02/12/24 01:10 02/12/24 01:15 IV 50 mls/hr .Q20H CORDELL Administration Morphine Sulfate 2 mg 02/12/24 01:06 02/12/24 01:58 Morphine 2 Mg/Ml Syringe IV 2 mg Q2H PRN PRN Administration Pain Score 6-10 Ondansetron HCl 4 mg 02/12/24 01:06 Ondansetron 4 Mg/2 Ml Vial IV Q6H PRN PRN NAUSEA Sodium Chloride 10 - 40 ml 02/12/24 01:05 0.9% Saline Lock 10 Ml Syringe IV UD PRN SALINE FLUSH Anesthesia Focused Assessment* Temperature: 98 F Pulse Rate: 90 Blood Pressure: 160/72 Respiratory Rate: 18 Pulse Ox: 98 Airway Assessment Mouth opens: >3 cm Mallampati Score: II Focused Labs Anesthesia Preop lab: CBC WBC 12.4 K/mm3 (4.4-11.0) H 02/11/24 23:15 RBC 4.52 M/mm3 (4.2-5.4) 02/11/24 23:15 Hgb 12.7 g/dL (12.0-15.0) 02/11/24 23:15 Hct 40.1 % (37-47) 02/11/24 23:15 Plt Count 405 K/mm3 (150-450) 02/11/24 23:15 CHEMISTRY Potassium 3.9 mmol/L (3.5-5.1) 02/12/24 07:00 Sodium 143 mmol/L (136-145) 02/12/24 07:00 BUN 17 mg/dL (7-18) 02/12/24 07:00 Creatinine 1.14 mg/dL (0.55-1.02) H 02/12/24 07:00 Glucose 177 mg/dL (74-106) H 02/12/24 07:00 TSH 2.02 uIU/mL (0.358-3.74) 02/12/24 07:00 COAG PT 12.0 SECONDS (11.9-14.4) 02/05/14 12:40 Review of Systems (Anesthesia) ROS Narrative System reviewed and no additional complaints, except as documented. [facility] Medical History Hyperlipidemia Hypothyroid Diabetes HTN (hypertension) Home Medications ?Medication ?Instructions ?Recorded ?Last Taken ?Type metformin 500 mg tablet 1,000 mg PO BIDCM 10/11/17 02/10/24 History dulaglutide 0.75 mg/0.5 mL 0.75 mg SQ TU 06/10/18 02/10/24 History subcutaneous pen injector (Trulicity) rosuvastatin 10 mg tablet 10 mg PO DAILY 06/10/18 02/10/24 History glipizide 5 mg tablet 5 mg PO DAILY 02/11/24 02/10/24 History hydrocodone-acetaminophen 5-325mg 1 tab PO Q6H PRN PRN Pain 3 days 02/11/24 02/11/24 Rx 5mg-325mg #12 TABLETS levothyroxine 75 mcg tablet 75 mcg PO DAILY 02/11/24 02/10/24 History lisinopril 10 mg tablet 10 mg PO DAILY 02/11/24 02/10/24 History metoprolol tartrate 50 mg tablet 50 mg PO DAILY 02/11/24 02/10/24 History ondansetron 4 mg disintegrating 4 mg PO Q6H PRN nausea and 02/11/24 02/11/24 Rx tablet vomiting #12 tabs dulaglutide 1.5 mg/0.5 mL 0.75 mg subcut QWEEK diabetes 02/12/24 02/10/24 History subcutaneous pen injector (Trulicity) Allergy/AdvReac Type Severity Reaction Status Date / Time No Known Allergies Allergy Verified 02/11/24 23:08 Family History Sister Breast cancer Diabetes Thyroid disorder Brother Colon cancer Heart disease Thyroid disorder Mother Diabetes Hypertension Surgical History H/O breast biopsy Hx of colonoscopy History of cataract extraction History of right wrist replacement History of tubal ligation History of hysterectomy H/O: Social History Smoking Status: Former smoker alcohol intake: never
--- NOTE | 2024-02-12 12:07 | HP.PCM_ITS ---
HPI - General General Date of Admission: 02/12/24 Date of Service: 02/12/24 Chief Complaint: Right proximal ureteral calculi HPI Narrative KARIN PRESTON, is a 73 F who presents to the hospital with a stone in the proximal right ureter with severe renal colic she went to the emergency room once was sent home and then came back to emergency room with severe pain again so she is admitted for pain control and she is on the schedule for today for cystoscopy and right stent placement. Will pry keep her till tomorrow for observation and then we will set up for outpatient shockwave lithotripsy [facility] Medical History Hyperlipidemia Hypothyroid Diabetes HTN (hypertension) Home Medications ?Medication ?Instructions ?Recorded ?Last Taken ?Type metformin 500 mg tablet 1,000 mg PO BIDCM 10/11/17 02/10/24 History dulaglutide 0.75 mg/0.5 mL 0.75 mg SQ TU 06/10/18 02/10/24 History subcutaneous pen injector (Trulicity) rosuvastatin 10 mg tablet 10 mg PO DAILY 06/10/18 02/10/24 History glipizide 5 mg tablet 5 mg PO DAILY 02/11/24 02/10/24 History hydrocodone-acetaminophen 5-325mg 1 tab PO Q6H PRN PRN Pain 3 days 02/11/24 02/11/24 Rx 5mg-325mg #12 TABLETS levothyroxine 75 mcg tablet 75 mcg PO DAILY 02/11/24 02/10/24 History lisinopril 10 mg tablet 10 mg PO DAILY 02/11/24 02/10/24 History metoprolol tartrate 50 mg tablet 50 mg PO DAILY 02/11/24 02/10/24 History ondansetron 4 mg disintegrating 4 mg PO Q6H PRN nausea and 02/11/24 02/11/24 Rx tablet vomiting #12 tabs dulaglutide 1.5 mg/0.5 mL 0.75 mg subcut QWEEK diabetes 02/12/24 02/10/24 History subcutaneous pen injector (Trulicity) Allergy/AdvReac Type Severity Reaction Status Date / Time No Known Allergies Allergy Verified 02/11/24 23:08 Family History Sister Breast cancer Diabetes Thyroid disorder Brother Colon cancer Heart disease Thyroid disorder Mother Diabetes Hypertension Surgical History H/O breast biopsy Hx of colonoscopy History of cataract extraction History of right wrist replacement History of tubal ligation History of hysterectomy H/O: Social History Smoking Status: Former smoker alcohol intake: never Vital Signs Vital Signs Vital Signs: 02/11/24 23:06 02/12/24 00:38 02/12/24 01:04 Temperature 96.8 F L 98.1 F 97.7 F L Temperature Source Temporal Pulse Rate 75 116 H 64 Respiratory Rate 20 H 18 16 Respiratory Effort Respiratory Depth Respiratory Pattern Blood Pressure 204/109 H 91/62 145/64 H Blood Pressure Mean 140 71 91 Blood Pressure Source Blood Pressure Position Blood Pressure Location Pulse Ox 97 98 98 Oxygen Delivery Method Room Air 02/12/24 01:05 02/12/24 01:11 02/12/24 04:01 Temperature 97.7 F L 97.9 F Temperature Source Oral Oral Pulse Rate 91 90 Respiratory Rate 18 20 H Respiratory Effort Normal Non-Labored Respiratory Depth Normal Respiratory Pattern Normal Blood Pressure 202/90 H 172/76 H Blood Pressure Mean 127 108 Blood Pressure Source Blood Pressure Position Blood Pressure Location Pulse Ox 94 91 Oxygen Delivery Method Room Air Room Air Room Air 02/12/24 09:00 02/12/24 09:02 02/12/24 10:59 Temperature 98 F 98 F Temperature Source Oral Pulse Rate 90 90 90 Respiratory Rate 18 18 18 Respiratory Effort Normal Respiratory Depth Normal Respiratory Pattern Normal Blood Pressure 160/72 H 160/72 H Blood Pressure Mean 101 Blood Pressure Source Monitor Blood Pressure Position Semi-Fowlers Blood Pressure Location Right Arm Pulse Ox 98 98 Oxygen Delivery Method Room Air Room Air Weight Weight: 101.7 kg Body Mass Index (BMI) 39.6 Results Lab / Micro Data 02/11/24 23:15 02/12/24 07:00 Labs: Laboratory Results - last 24 hr 02/11/24 23:15: WBC 12.4 H, RBC 4.52, Hgb 12.7, Hct 40.1, MCV 88.7, MCH 28.1, M CHC 31.7 L, RDW Std Deviation 44.8 H, RDW Coeff of [place] 13.7, Plt Count 405, MPV 10.1, Immature Gran % (Auto) 1.000 H, Neut % (Auto) 71.1 H, Lymph % (Auto) 19.4, [place] % (Auto) 6.4, Eos % (Auto) 1.1, Baso % (Auto) 1.0, Absolute Neuts (auto) 8.8 H, Absolute Lymphs (auto) 2.41, Nucleated RBC % 0, Sodium 141, Potassium 3.8, Chloride 107, Carbon Dioxide 23.0, Anion Gap 11, BUN 17, Creatinine 0.94, Estim Creat Clear Calc 61.69, Est GFR (MDRD) Af Amer 75, Est GFR (MDRD) Non-Af 62, BUN/Creatinine Ratio 18.0, Glucose 262 H, Calcium 9.2 02/12/24 06:00: Urine Color Yellow, Urine Clarity Clear, Urine pH 6.0, Ur Specific [place] 1.020, Urine Protein 15 H, Urine Glucose (UA) 250 H, Urine Ketones 15 H, Urine Occult Blood 150 H, Urine Nitrite Negative, Urine Bilirubin Negative, Urine Urobilinogen Normal, Ur Leukocyte Esterase Negative, Urine RBC 5-10 SEEN, Urine WBC 0 SEEN, Ur Squamous Epith Cells 0-5 SEEN, Urine Bacteria 0 SEEN, Urine Mucus 0 SEEN 02/12/24 07:00: Sodium 143, Potassium 3.9, Chloride 112 H, Carbon Dioxide 23.0, Anion Gap 8, BUN 17, Creatinine 1.14 H, Estim Creat Clear Calc 50.79, Est GFR (MDRD) Af Amer 60, Est GFR (MDRD) Non-Af 50 L, BUN/Creatinine Ratio 14.9, G lucose 177 H, Hemoglobin A1c 6.6 H, Calcium 8.8, TSH 2.02 Assessment & Plan Assessment/Plan (1) Kidney stone on right side: PLAN: Plan for cystoscopy and right stent placement
--- NOTE | 2024-02-12 12:26 | CASEMGMT ---
Addendum entered by Katherine Sanderson 02/12/24 13:04: Pt states she is independent @ home and denies having any discharge needs/concerns. Original Note: STEFFI AZEVEDO NOTE: STEFFI AZEVEDO to room. Pt resting in Intro role of CM to patient and [facility] form explained re: Observation status for treatment of flank pain and kidney stone.? Explained hospitalization will be paid per?her insurance policy for Outpatient billing?and condition will continue to be evaluated for Inpt necessity. Also let pt know that [facility] sends paper in the billing packet with their phone number if questions arise. Discussed Pharmacy section of [facility] form and self administered medication guideline.? Pt states she has MCR as primary and [place] as secondary, although she states [place] was through her 's insurance and he just @ beginning of January. She states she was told on admission that [place] was not showing as active. She plans to call to check on this, as she thinks it would still be active through end of January. STEFFI AZEVEDO advised her to call [facility] w/information insurance provides once she contacts them. She voices understanding. Pt verbalizes understanding and does not have further questions. ?Form signed, copy made and placed in chart, and original given to pt. Crystal OKEEFE RN, CM
[2024-02-12] MEDS: Lisinopril 10 MG Tablet PO (12:43)
[2024-02-12] MEDS: Metoprolol Tartrate 50 MG Tablet PO (12:43)
[2024-02-12] MEDS: Cefazolin 2 GM in 0.9% Normal Saline (100mL Bag) 100 ML IV (13:24)
--- NOTE | 2024-02-12 13:31 | DCINST_ITS ---
Discharge Instructions Diet Discharge Diet: No restrictions Activity Discharge Activity: Return to Normal Activity and May Not Drive (while taking narcotic pain medications.) Dressing / Incision Call your doctor if you observe: Fever of 101 or Higher Follow Up Care Please Follow Up With: Jeremy Bonilla MD When: Call [phone] for an appointment Test Results: Test results from this visit will be discussed in further detail at your follow- up appointment, if applicable. Discharge Plan Admission Admit Date/Time: 02/12/24 01:03 Primary Reason for Your Visit: stent for stone Attending Provider: Jeremy Bonilla Primary Care Provider: Nallely Robb Discharge Orders/Prescriptions Prescriptions: New ciprofloxacin HCl [Cipro] 500 mg tablet 500 mg PO BID Qty: 6 0RF Continued metformin 500 MG tablet 1,000 mg PO BIDCM rosuvastatin 10 MG tablet 10 mg PO DAILY Trulicity 0.75 MG/0.5 ML pen injector 0.75 mg SQ TU ondansetron 4 mg tablet,disintegrating 4 mg PO Q6H PRN (Reason: nausea and vomiting) Qty: 12 0RF levothyroxine 75 mcg tablet 75 mcg PO DAILY lisinopril 10 mg tablet 10 mg PO DAILY metoprolol tartrate 50 mg tablet 50 mg PO DAILY glipizide 5 mg tablet 5 mg PO DAILY hydrocodone-acetaminophen 5-325 mg tablet 1 tab PO Q6H PRN PRN (Reason: Pain) 3 Days Qty: 12 0RF Trulicity 1.5 mg/0.5 mL pen injector 0.75 mg subcut QWEEK Patient Comments: takes it on Referrals / Follow Up: Jeremy Bonilla MD [Med Staff - Active Staff] - Nallely Robb PA [Primary Care Provider] - Disposition Disposition (needs filled in before D/C Order can be placed): Home, Self Care
--- NOTE | 2024-02-12 13:32 | PCM.OPRPT ---
Report of Operation Date of Procedure: 02/12/24 Pre-Operative Diagnosis: Right proximal obstructing ureteral calculi Post-Operative Diagnosis: The same Surgery/Procedure Performed:: Cystoscopy, right stent placement Description of Surgical Findings:: Patient was taken back to the operating room at a smooth induction of a MAC local she was placed in dorsolithotomy position. The urethrovaginal area prepped and draped in usual sterile fashion went in the bladder with a 21 [place] rigid cystourethroscope the bladder was normal no tumors or stones seen within the bladder I then cannulated the right ureteral orifice with a Glidewire advanced a wire up under fluoroscopy I could see the stone in the proximal ureter that the wire went past the stone that had been advanced a stent up into the right kidney the stent went past the stone and coiled and then the coiled in the bladder patient's bladder was drained and she will be discharged home today and we will get her set up for outpatient shockwave lithotripsy this to treat the stone fragment. Surgeon: Jeremy Bonilla Type of Anesthesia: MAC Drains: stent right 6 x 26 cm Admit VTE Documentation VTE Present on Admission: No VTE Mechan Device Prophylaxis: SCD's VTE Pharm Prophylaxis ordered?: No
--- NOTE | 2024-02-12 13:42 | PCM.POST.ANE ---
Anesthesia: Postop Eval I Current Vital Signs Temperature: 96.9 F Pulse Rate: 88 Blood Pressure: 135/72 Respiratory Rate: 14 Pulse Ox: 94 Oxygen Delivery Method: Room Air Assessment Airway patent: Yes Spontaneous unlabored respirations: Yes Mental status: Awake and Calm nausea: No Vomiting: No Anesthesia Complication: No Fluid Hydration Crystalloid volume administer (ml): 400 Total IV fluid infused: 400 Progress Note Anesthesia document: Postop Eval 1 completed: Yes
--- NOTE | 2024-02-12 13:45 | POSTOPAN2_ITS ---
Anesthesia Postop Eval I Sum Postop Eval Completion status Anesthesia document: Postop Eval 1 completed: Yes Anesthesia Postop Eval I Summary Anesthesia Postop Eval I Summary: Anesthesia Postop Eval I: Assessment Summary Airway patent Yes 02/12/24 13:43 [email or web address] Spontaneous unlabored Yes 02/12/24 13:43 [email or web address] respirations Mental status Awake,Calm 02/12/24 13:43 [email or web address] nausea No 02/12/24 13:43 [email or web address] Vomiting No 02/12/24 13:43 [email or web address] Anesthesia Postop Eval I: Fluid Summary Crystalloid volume administer 400 02/12/24 13:43 [email or web address] (ml) Colloids volume administered ( ml) Blood Product volume administered (ml) Total IV fluid infused 400 02/12/24 13:43 [email or web address] Anesthesia Postop Eval I: Summary Notes Anesthesia Complication No 02/12/24 13:43 [email or web address] Anesthesia Complication Comment: Post-operative progress note Anesthesia: Postop Eval II Evaluation Mental status: Awake and Calm Pain Level: 0 nausea: No Vomiting: No Complications Anesthesia Complication: No
--- NOTE | 2024-02-12 13:45 | PCM.POSTANE2 ---
Anesthesia Postop Eval I Sum Postop Eval Completion status Anesthesia document: Postop Eval 1 completed: Yes Anesthesia Postop Eval I Summary Anesthesia Postop Eval I Summary: Anesthesia Postop Eval I: Assessment Summary Airway patent Yes 02/12/24 13:43 DIRECTOR OF [email or web address] Spontaneous unlabored Yes 02/12/24 13:43 DIRECTOR OF [email or web address] respirations Mental status Awake,Calm 02/12/24 13:43 DIRECTOR OF [email or web address] nausea No 02/12/24 13:43 DIRECTOR OF [email or web address] Vomiting No 02/12/24 13:43 DIRECTOR OF [email or web address] Anesthesia Postop Eval I: Fluid Summary Crystalloid volume administer 400 02/12/24 13:43 DIRECTOR OF [email or web address] (ml) Colloids volume administered ( ml) Blood Product volume administered (ml) Total IV fluid infused 400 02/12/24 13:43 DIRECTOR OF [email or web address] Anesthesia Postop Eval I: Summary Notes Anesthesia Complication No 02/12/24 13:43 DIRECTOR OF [email or web address] Anesthesia Complication Comment: Post-operative progress note Anesthesia: Postop Eval II Evaluation Mental status: Awake and Calm Pain Level: 0 nausea: No Vomiting: No Complications Anesthesia Complication: No
--- NOTE | 2024-02-12 16:40 | CASEMGMT ---
Social Work Reason for intervention: Grief and emotional support Collaboration with travel manager who reported the patient's earlier this month. This designer writer met with patient and patient's son Rogelio in room, introducing to self and social work role. Let patient know this designer writer was checking in on the patient, how patient was doing, acknowledging the patient has been through some big things recently. Patient immediately started speaking about the loss of her on January 31, 2024. Patient talked openly with her son Rogelio present. Much discussion about the patient's experiences a caregiver, experience with hospice, and the moments that patient experienced with her . Patient reflective about life. Patient acknowledges having some depression, and that nighttime is the hardest time for the patient when patient is trying to go to sleep. Psychoeducation about depression including sleep issues that can go along with depression. Educated that the symptoms patient is describing, is common to the grief experience and part of the grief experience is depression. Much emotional support provided. Medication and counseling interventions discussed as options for depression, should patient's symptoms continued for an extended time or worsen. Educated to potential benefits of counseling, as an additional support to the patient as patient navigates finding a new normal after the loss of patient's and no longer having the caregiving role after so long. Patient son presented as supportive, nodding head in agreement with some of the things social economist talked about. Educated that hospice will be reaching out to patient and family next year, and urged patient to utilize this is much as possible. Patient expressed much appreciation for social work checking in with the patient this date. Plan: Home with family support. Patient has grief support being offered through hospice, and is aware can access counseling options through [facility] if desires this in the future. -AMBER España
== END 2024-02-12 18:06 | disposition home or self-care (01) ==
LOC: ED 02-12 00:29 → MS3 02-12 01:14
PROVIDERS: Anesthesiology; Admitting Provider Urology; Emergency Provider Emergency Medicine; Referring Provider Urology; Visit Provider Urology
PROC: (CPT 50575; principal; 2024-02-12 13:00)
DX: N20.2 Calculus of kidney with calculus of ureter (principal); E11.9 Type 2 diabetes mellitus without complications; E03.9 Hypothyroidism, unspecified; Z87.891 Personal history of nicotine dependence; I10 Essential (primary) hypertension; Z79.84 Long term (current) use of oral hypoglycemic drugs; E78.5 Hyperlipidemia, unspecified; Z79.899 Other long term (current) drug therapy; Z79.890 Hormone replacement therapy
CPT/HCPCS: 52332; 00910; 76000; 80048; 81001; 83036; 84443; 85025; 93005; 96374; 96375; 96376; 99221; 99284; J7030; J7120; A4216; C1769; C2617; G0378; J2405

== ENCOUNTER → 2024-02-16 | Outpatient (CLI) | payer MEDICARE, SELFPAY ==
--- NOTE | 2024-02-16 07:40 | EKG12_ITS ---
Test Reason : PREOP Blood Pressure : / mmHG Vent. Rate : 072 BPM Atrial Rate : 072 BPM P-R Int : 158 ms QRS Dur : 088 ms QT Int : 404 ms P-R-T Axes : 028 009 029 degrees QTc Int : 442 ms Normal sinus rhythm Normal ECG Confirmed by JACQUELINE RODRIGUEZ, SAI ([id number]), image editor RENA CORDOVA ([id number]) on 02/17/2024 8:27:45 AM Referred By: Jeremy Bonilla Confirmed By:SAI PHILLIPS MD
== END | disposition home or self-care (01) ==
PROVIDERS: Referring Provider Urology; Visit Provider Urology
DX: Z01.810 Encounter for preprocedural cardiovascular examination (principal)
CPT/HCPCS: 93005

== ENCOUNTER 2024-04-12 20:45 | Emergency (ER) | payer MEDICARE, BC, SELFPAY ==
[2024-04-12] VITALS (8 sets, daily range): BP systolic 91–130; BP diastolic 68–80; PULSE 76–142; RESP 14–25; TEMP 36.6; O2SAT 92–99; BMI 39.4
[2024-04-12 21:12] LABS: Absolute Lymphocyte Count 3.61 X10^3/uL (0.83-4.51); Absolute Neutrophil Count 6.2 X10^3/uL (2.0-7.7); Basophil# 0.14 X10^3/uL; Basophil% 1.3 % (0-1); Eosinophil# 0.32 X10^3/uL; Eosinophils% 2.9 % (0-5); Hematocrit 41.9 % (37-47); Hemoglobin 13.7 g/dL (12.0-15.0); Lymphocyte # 3.61 X10^3/ul (0.83-4.51); Lymphocyte % 32.3 % (19-41); Mean Corp Hgb Conc 32.7 g/dL (32-36); Mean Corpuscular Hgb 28.1 pg (27.0-32.0); Mean Corpuscular Volume 85.9 fL (81-99); Mean Platelet Vol. 10.3 fl (6.2-12.0); Monocyte# 0.81 X10^3/uL; Monocyte% 7.2 % (0-10); NRBC Flagged by Analyzer 0 % (0-5); Neutrophil # 6.22 X10^3/uL (2.7-7.7); Neutrophil % 55.5 % (47-70); Platelet Count 401 K/mm3 (150-450); RBC Distribution Width CV 14.7 % (11.6-14.6); RBC Distribution Width SD 46.2 fl (35.1-43.9); Red Blood Count 4.88 M/mm3 (4.2-5.4); White Blood Count 11.2 K/mm3 (4.4-11.0)
--- NOTE | 2024-04-12 21:15 | RAD_ITS ---
EXAM: XR CHEST, 1 VIEW CLINICAL INDICATION: chest pain TECHNIQUE: Frontal view of the chest. COMPARISON: No relevant prior studies available. FINDINGS: LUNGS AND PLEURAL SPACES: Unremarkable. No consolidation or edema. No pneumothorax. No effusion. HEART: Unremarkable. Cardiac silhouette not enlarged. MEDIASTINUM: Central airways and mediastinal contour are unremarkable. BONES/JOINTS: Unremarkable. No acute fracture. SOFT TISSUES: Unremarkable. RAD/Chest 1 View (Portable) IMPRESSION: No radiographic evidence of acute cardiopulmonary disease. Electronically Signed: Agusto James MD at 22:16 EDT ,
[2024-04-12 21:32] LABS: Anion Gap 10 (5-15); BUN 22 mg/dL (7-18); BUN/Creat Ratio 17.6 RATIO (10-20); Calcium,Total 8.8 mg/dL (8.5-10.1); Chloride 108 mmol/L (98-107); Creatinine, Serum 1.25 mg/dL (0.55-1.02); EST Glomerular Filtration Rate 45 mL/min (>60); Est Glom Filt Rate - Afr Amer 54 mL/min (>60); Estimated Creatinine Clearance 46.16 ml/min; Glucose 308 mg/dL (74-106); Sodium Level 137 mmol/L (136-145); Troponin-I HS (w/2H Reflex) 14 pg/mL (3.0-54.0)
[2024-04-12] MEDS: 0.9% Normal Saline (1000mL) 1,000 ML 999 ML IV (22:13)
[2024-04-12] MEDS: Adenosine 6 MG/2 ML Syringe IV (22:19)
[2024-04-12 22:32] LABS: Magnesium 1.5 mg/dL (1.6-2.6)
[2024-04-12 23:09] LABS: Reflex Troponin-HS? (from REC) Y
--- NOTE | 2024-04-12 23:32 | EX.ED.DYSGE1 ---
HPI History of Present Illness Chief Complaint: Palpitations Informant: patient and family Narrative Narrative: Patient is a 73-year-old female with past medical history of hypertension hypothyroidism and [id number]-fuovopnpo diabetes as well as SVT. She states that she has not followed with a product support specialist for multiple years. She reports she has been taking her metoprolol however as directed which was the medication she was started on once she was diagnosed with SVT. She reports has been under a great deal of stress recently. She denies any excessive cement use or illicit drug use. She states that she can always feel when she goes into SVT and it happened this morning around 8:30 AM. She states she has been trying to get herself out for the last 12 hours without any improvement and therefore comes in for evaluation. [facility] Medical History (Updated 04/12/24 @ 23:[address] Hakan Preston, DO) Hyperlipidemia Hypothyroid Diabetes HTN (hypertension) Home Medications ?Medication ?Instructions ?Recorded ?Last Taken ?Type metformin 500 mg tablet 1,000 mg PO BIDCM 10/11/17 02/10/24 History rosuvastatin 10 mg tablet 10 mg PO DAILY 06/10/18 02/10/24 History glipizide 5 mg tablet 5 mg PO DAILY 02/11/24 02/10/24 History levothyroxine 75 mcg tablet 75 mcg PO DAILY 02/11/24 02/10/24 History lisinopril 10 mg tablet 10 mg PO DAILY 02/11/24 02/10/24 History metoprolol tartrate 50 mg tablet 50 mg PO DAILY 02/11/24 02/10/24 History Allergy/AdvReac Type Severity Reaction Status Date / Time No Known Allergies Allergy Verified 04/12/24 20:46 Family History Sister Breast cancer Diabetes Thyroid disorder Brother Colon cancer Heart disease Thyroid disorder Mother Diabetes Hypertension Surgical History H/O breast biopsy Hx of colonoscopy History of cataract extraction History of right wrist replacement History of tubal ligation History of hysterectomy H/O: Social History Smoking Status: Former smoker alcohol intake: never ROS ROS ED Constitutional Constitutional ED: Denies chills or fever(s) Eyes Eyes: Denies blurry vision or change in vision ENT ENT ED: Denies sore throat Cardiovascular Cardiovascular: Reports palpitations and racing heartbeat; Denies chest pain Respiratory/Chest Respiratory/Chest: Denies cough or dyspnea Gastrointestinal Gastrointestinal: Denies abdominal pain, diarrhea, nausea or vomiting Genitourinary Genitourinary ED: Denies dysuria Musculoskeletal Musculoskeletal: Denies myalgias Integumentary Denies rash Neurologic Neurologic: Denies headache(s) Hematologic/Lymphatic Hematologic/Lymphatic: Denies easy bleeding or easy bruising EXAM Physical Exam Const Vital Signs: 04/12/24 20:46 04/12/24 21:32 04/12/24 21:45 Temperature 97.8 F Temperature Source Temporal Pulse Rate 142 H 131 H Respiratory Rate 18 19 H Blood Pressure 122/80 H 101/74 Blood Pressure Mean 94 83 Pulse Ox 98 95 95 Oxygen Delivery Method Room Air Room Air Room Air 04/12/24 22:00 04/12/24 22:15 04/12/24 22:20 Temperature Temperature Source Pulse Rate 130 H 130 H 85 Respiratory Rate 25 H 20 H 14 Blood Pressure 91/74 128/69 H 126/69 H Blood Pressure Mean 82 88 88 Pulse Ox 92 99 99 Oxygen Delivery Method Room Air Room Air 04/12/24 23:00 04/12/24 23:36 Temperature 98 F Temperature Source Pulse Rate 82 76 Respiratory Rate 18 Blood Pressure 127/70 H 130/68 H Blood Pressure Mean 86 88 Pulse Ox 95 95 Oxygen Delivery Method Positive well nourished, well developed and obese General Appearance ED: well developed; Negative for pallor Nutritional Appearance: obese HEENT Reports dry mucous membranes HEENT Narrative: No tongue or lip swelling no oral lesions no airway edema or compromise Mouth ED: Yes dry mucous membranes Mouth: dry mucous membranes Eyes PERRL and EOMs intact bilaterally General Eye ED: Negative for pale conjunctiva or scleral icterus Neck supple and no JVD Chest Wall palpation of chest normal Resp normal respiratory effort and clear to auscultation bilaterally Cardio regular rhythm Rate: tachycardic and other Other Details: Tachycardic rate with regular rhythm without murmurs rubs or gallops GI normal to inspection, nondistended, normoactive bowel sounds, non-tender, non-distended and no masses Auscultation: normoactive bowel sounds Palpation: soft Extremity normal to inspection Extremity Narrative: No asymmetric edema no pitting edema negative Homans' sign bilaterally Neuro oriented x3, CN's II-XII intact bilaterally and no sensory deficits noted Sensorium / Orientation: alert Motor Exam: strength 5/5 throughout Psych mental status grossly normal Skin no rashes or lesions noted Skin Narrative: Skin turgor is increased General Skin Exam: Negative for jaundice or pallor MDM MDM MDM Narrative Medical decision making narrative: Patient arrived to the ER tachycardic but otherwise with stable vitals and in no acute distress. She has a known history of SVT and states that she believes she has been in it for approximately 12 hours. An EKG was obtained to assess for cardiac dysrhythmia versus acute coronary syndrome and did show changes consistent with supraventricular tachycardia. In order to ensure that the SVT was not related to acute blood loss anemia acute kidney injury or severe electrolyte abnormality basic blood work was obtained. Labs revealed no clinically significant findings. As patient states she has been trying to get herself out of SVT all day without symptom improvement I did elect to perform chemical cardioversion with adenosine. Patient was given 6 mg of IV adenosine and had spontaneous conversion to normal sinus rhythm. She was given 1 L of fluid as her exam did show mild dehydration changes and was kept in the ER for approximately 1 hour. There was no return of supraventricular tachycardia and vitals remained stable and therefore she is otherwise safe for discharge. History & Record Review Discussion w/independent historian: Patient and Family Lab Data Attestation: I reviewed the patient's lab results. Labs: Laboratory Results - last 24 hr 04/12/24 21:02 WBC 11.2 H RBC 4.88 Hgb 13.7 Hct 41.9 MCV 85.9 MCH 28.1 MCHC 32.7 RDW Std Deviation 46.2 H RDW Coeff of Davey 14.7 H Plt Count 401 MPV 10.3 Immature Gran % (Auto) 0.800 Neut % (Auto) 55.5 Lymph % (Auto) 32.3 Drew % (Auto) 7.2 Eos % (Auto) 2.9 Baso % (Auto) 1.3 H Absolute Neuts (auto) 6.2 Absolute Lymphs (auto) 3.61 Nucleated RBC % 0 Sodium 137 Potassium 4.0 Chloride 108 H Carbon Dioxide 19.0 L Anion Gap 10 BUN 22 H Creatinine 1.25 H Estim Creat Clear Calc 46.16 Est GFR (MDRD) Af Amer 54 L Est GFR (MDRD) Non-Af 45 L BUN/Creatinine Ratio 17.6 Glucose 308 H Calcium 8.8 Magnesium 1.5 L Troponin I High Sens 14 TSH 3.880 H Radiography Diagnostic Testing: Clinical Impression(s) from Imaging Studies Chest X-Ray 04/12/24 21:15 IMPRESSION: No radiographic evidence of acute cardiopulmonary disease. Electronically Signed: Agusto James MD at 22:16 EDT , Chest x-ray as interpreted by the emergency medicine physician reveals no acute infiltrate pneumothorax or pleural effusion Discharge Plan Triage Chief Complaint: Palpitations ED Provider: Hakan Preston Dx/Rx/DC Orders Clinical Impression: Supraventricular tachycardia, Non-insulin dependent diabetes mellitus, Hypertension, Hypothyroidism Instructions: ED Understanding Supraventricular Tachycardia (SVT) Prescriptions: No Action metformin 500 MG tablet 1,000 mg PO BIDCM rosuvastatin 10 MG tablet 10 mg PO DAILY levothyroxine 75 mcg tablet 75 mcg PO DAILY lisinopril 10 mg tablet 10 mg PO DAILY metoprolol tartrate 50 mg tablet 50 mg PO DAILY glipizide 5 mg tablet 5 mg PO DAILY Primary Care Provider: Nallely Robb Referrals: Segun Hua MD [Med Staff - Active Staff] - Nallely Robb PA [Primary Care Provider] - Activity Restrictions/Additional Instructions: Please continue your home medications as directed by your doctor and follow-up with cardiology for repeat evaluation. Return to the ER should you have any further concerns Print Language: Khmer Disposition Disposition: Home, Self Care
[2024-04-12 23:52] LABS: Troponin-I HS 15 pg/mL (3.0-54.0)
== END 2024-04-12 23:46 | disposition home or self-care (01) ==
PROVIDERS: Emergency Provider Emergency Medicine; Visit Provider Emergency Medicine
DX: I47.10 Supraventricular tachycardia, unspecified (principal); E11.9 Type 2 diabetes mellitus without complications; I10 Essential (primary) hypertension; E78.5 Hyperlipidemia, unspecified; E03.9 Hypothyroidism, unspecified; E66.9 Obesity, unspecified; Z79.899 Other long term (current) drug therapy; Z79.84 Long term (current) use of oral hypoglycemic drugs; Z87.891 Personal history of nicotine dependence
CPT/HCPCS: 71045; 80048; 83735; 84443; 84484; 85025; 93005; 96360; 99284; J7030; A4216; J0153

== ENCOUNTER → 2024-06-05 | Outpatient (CLI) | payer MEDICARE, BC, SELFPAY ==
[2024-06-05 13:12] LABS: Anion Gap 6 (5-15); BUN 12 mg/dL (7-18); BUN/Creat Ratio 14.6 RATIO (10-20); Calcium,Total 9.5 mg/dL (8.5-10.1); Chloride 108 mmol/L (98-107); Creatinine, Serum 0.82 mg/dL (0.55-1.02); EST Glomerular Filtration Rate 72 mL/min (>60); Est Glom Filt Rate - Afr Amer 88 mL/min (>60); Glucose 88 mg/dL (74-106); Potassium 4.3 mmol/L (3.5-5.1); Sodium Level 142 mmol/L (136-145)
== END | disposition home or self-care (01) ==
PROVIDERS: Referring Provider Internal Medicine Cardiovascular Disease; Visit Provider Internal Medicine Cardiovascular Disease
DX: N18.9 Chronic kidney disease, unspecified (principal); E03.9 Hypothyroidism, unspecified
CPT/HCPCS: 36415; 80048; 84443

== ENCOUNTER → 2025-01-05 | Outpatient (CLI) | payer MEDICARE, BC, SELFPAY ==
--- NOTE | 2025-01-05 07:53 | ECHOCS_ITS ---
Reason For Study Reason For Study: PALPITATIONS Procedure This was a 2D Doppler, Color Flow transthoracic echocardiogram. The study was technically difficult. Contrast injection was performed. Exam performed in department. Left Ventricle Normal LV size. Mild concentric left ventricular hypertrophy. The LV systolic function is normal. EF is 65 %. Stage 1 diastolic dysfunction. Right Ventricle Normal right ventricle. Atria The left atrium is severely enlarged. Normal right atrium. Mitral Valve Mild mitral annular calcification. Trivial mitral valve insufficiency. Tricuspid Valve Trivial tricuspid valve insufficiency. Unable to estimate RV systolic pressure due to insufficient tricuspid regurgitant envelope. Aortic Valve Trisinus/trileaflet aortic valve. Pulmonic Valve The pulmonic valve is not well visualized. Great Vessels Normal sized aortic root. Medication 22 gauge I.V. with prn adaptor inserted into right arm. Diluted definity 2ml given slow IV push to enhance endocardial definition. MMode/2D Measurements & Calculations LVIDd: 4.0 cm IVSd: 1.2 cm LVOT diam: 2.0 cm LVIDs: 2.7 cm LVPWd: 1.2 cm LVOT area: 3.2 cm2 FS: 31.6 % Ao root diam: 3.1 cm LAV(MOD-bp): 51.9 ml LVAd ap4: 28.2 cm2 LAV(MOD-bp) Indexed: 25.4 ml/m2 LVLd ap4: 7.8 cm LAV(MOD-sp2): 45.0 ml EDV(MOD-sp4): 88.0 ml LAV(MOD-sp4): 59.6 ml EDV(sp4-el): 86.3 ml LVAs ap4: 16.5 cm2 LVLs ap4: 6.4 cm ESV(MOD-sp4): 35.9 ml ESV(sp4-el): 36.3 ml EF(MOD-sp4): 59.2 % EF(sp4-el): 58.0 % SV(MOD-sp4): 52.1 ml SV(sp4-el): 50.0 ml LA A4 area: 19.8 cm2 SI(MOD-sp4): 25.5 ml/m2 LA dimension(2D): 4.8 cm RA A4 area: 12.1 cm2 Time Measurements MV dec time: 0.17 sec Doppler Measurements & Calculations MV E max mika: 68.3 cm/sec Lat Peak E' Mika: 7.4 cm/sec Med Peak E' Mika: 4.6 cm/sec MV A max mika: 85.4 cm/sec E/E' lat: 9.2 E/E' med: 14.8 MV E/A: 0.80 MV V2 max: 97.6 cm/sec Ao V2 max: 121.5 cm/sec MV max P.8 mmHg MV dec slope: 399.6 cm/sec2 Ao max P.9 mmHg MV V2 mean: 52.7 cm/sec Ao V2 mean: 80.9 cm/sec MV mean P.3 mmHg Ao mean P.0 mmHg MV V2 VTI: 23.0 cm Ao V2 VTI: 27.5 cm AV (velocity ratio): 0.83 MVA(VTI): 3.2 cm2 MICHAEL(I,D): 2.7 cm2 MICHAEL(V,D): 2.4 cm2 LV V1 max: 92.4 cm/sec SV(LVOT): 72.9 ml PA V2 max: 108.7 cm/sec LV V1 max P.4 mmHg PA V2 mean: 71.8 cm/sec LV V1 mean P.6 mmHg LV V1 mean: 57.5 cm/sec LV V1 VTI: 22.7 cm ECHO/Echo Complete W/ Contrast Interpretation Summary Mild concentric left ventricular hypertrophy. The LV systolic function is normal. EF is 65 %. Stage 1 diastolic dysfunction. Mild mitral annular calcification. The left atrium is severely enlarged. Ordering Physician: Segun Hua Referring Physician: Segun Hua Performed By: Liane Ho RCS
== END | disposition home or self-care (01) ==
LOC: CVS 07:53
PROVIDERS: Referring Provider Internal Medicine Cardiovascular Disease; Visit Provider Internal Medicine Cardiovascular Disease
DX: R00.2 Palpitations (principal)
CPT/HCPCS: 93306; Q9957; A4216; C8929

== ENCOUNTER → 2025-05-24 | Outpatient (CLI) | payer MEDICARE, BC, SELFPAY ==
--- NOTE | 2025-05-24 13:49 | STRESSREP ---
Stress Test Report Exercise myocardial perfusion stress test. 74-year-old lady with a history of chest pain. Stress protocol: Resting EKG demonstrates normal sinus rhythm with a rate of 73 bpm resting blood pressure is 124/72 mmHg. The patient exercised according to the regular Shakeel protocol for a total duration of 4-1/2 minutes attaining a maximum heart rate of 141 bpm which was 95% of maximum predicted heart rate; the maximum workload was 7 metabolic equivalents. At rest there were no ST or T wave changes noted to suggest ischemia and at peak exercise upsloping ST changes only were noted which did not meet the criteria for ischemia. No clinical angina was noted the test was terminated due to the target heart rate being achieved/fatigue. The peak blood pressure was 1 44/66 mmHg. Rate-pressure product was 20,800. Myocardial perfusion protocol. 15 mCi of technetium 99m sestamibi was injected at rest. The patient exercised according to regular Shakeel protocol for total duration of 4.5mins and at peak exercise 45 mCi of technetium 99m sestamibi was injected stress images were obtained stress and rest images were reconstructed in comparing the short axis vertical long and horizontal long axis. Gated images were also obtained. Perfusion SPECT analysis: Review of the stress images demonstrate normal uptake of tracer noted in all areas of the myocardium. The resting images similarly demonstrate normal uptake of tracer noted in all areas of the myocardium. No areas of reversibility are noted to suggest ischemia no previous infarct was noted. Gated SPECT analysis: The gated ejection fraction is 80%. Conclusion: Normal exercise myocardial perfusion stress test at a moderate workload.
== END | disposition home or self-care (01) ==
LOC: CVS 06:07
PROVIDERS: Referring Provider Student in an Organized Health Care Education/Training Program; Visit Provider Student in an Organized Health Care Education/Training Program
DX: R07.9 Chest pain, unspecified (principal); R00.2 Palpitations
CPT/HCPCS: 78452; 93017; A9500; A4216